=== PATIENT | female | born 1995 | race Caucasian/White ===

== ENCOUNTER 2022-10-21 22:14 | Inpatient (IN) | payer OTHER ==
[2022-10-21 22:33] VITALS: BMI 18.8
[2022-10-22] MEDS ORDERED: BISMUTH SUBSALICYLATE 524 MG/30 ML PO PRN (02:30)
[2022-10-22] MEDS ORDERED: MAGNESIUM HYDROX 2400MG/30ML ORAL SUSPENSION 30 ML CUP PO PRN (02:30)
[2022-10-22] MEDS ORDERED: guaiFENesin 600 MG TABLET.ER (FP) PO PRN (02:30)
[2022-10-22] MEDS ORDERED: POLYETHYLENE GLYCOL (HEALTHYLAX) 3350 17 GM PACKET PO PRN (02:30)
[2022-10-22] MEDS ORDERED: LOPERAMIDE HCL 2 MG CAPSULE PO PRN (02:30)
[2022-10-22] MEDS ORDERED: DICYCLOMINE HCL 10 MG CAPSULE PO PRN (02:30)
[2022-10-22] MEDS ORDERED: ACETAMINOPHEN 325 MG TABLET (FP) PO PRN (02:30)
[2022-10-22] MEDS ORDERED: BENZONATATE 200 MG CAPSULE PO PRN (02:30)
[2022-10-22] MEDS ORDERED: IBUPROFEN 600 MG TABLET (FP) PO PRN (02:30)
[2022-10-22] MEDS ORDERED: BENZOCAINE/MENTHOL (CHLORASEPTIC ) LOZENGE MM PRN (02:30)
[2022-10-22] MEDS ORDERED: MAG HYDROX/AL HYDROX/SIMETH 30 ML UNIT-DOSE CUP PO PRN (02:30)
[2022-10-22] MEDS ORDERED: IBUPROFEN 400 MG TABLET (FP) PO PRN (02:30)
[2022-10-22] MEDS ORDERED: NALOXONE HCL 0.4 MG/ML VIAL IM PRN (02:30)
[2022-10-22] MEDS ORDERED: ONDANSETRON *ODT* 4 MG TABLET SL PRN (02:30)
[2022-10-22] MEDS ORDERED: NALOXONE HCL (KLOXXADO) 8 MG SPRAY NS PRN (02:30)
[2022-10-22] MEDS ORDERED: cloNIDine HCL 0.1 MG TABLET PO PRN (09:45)
[2022-10-22] MEDS ORDERED: methaDONE HCL 10 MG TABLET (FOR DETOX USE ONLY) PO ONE (09:45)
[2022-10-22] MEDS: PRENATAL VITAMINS W/ FOLIC ACID TABLET (FP) PO SCH (10:37)
[2022-10-22] MEDS: SULFAMETHOXAZOLE/TRIMETHOPRIM 800MG/160MG D.S. TABLET PO SCH ×2 (10:37→22:21)
[2022-10-22] MEDS: METHOCARBAMOL 500 MG TABLET PO PRN (10:37)
[2022-10-22] MEDS: NICOTINE 21 MG/24 HOURS TOPICAL PATCH TD SCH (10:43)
[2022-10-22] MEDS: chlordiazePOXIDE HCL 25 MG CAPSULE PO SCH ×3 (10:45→22:21)
[2022-10-22] MEDS ORDERED: NICOTINE 10 MG CARTRIDGE (INHALER) IH PRN (12:52)
[2022-10-22] MEDS: NICOTINE POLACRILEX 2 MG GUM BUC PRN (18:45)
[2022-10-22] MEDS ORDERED: MELATONIN 5 MG TABLETS PO SCH (22:00)
[2022-10-22] MEDS: THIAMINE HCL 100 MG TABLET (FP) PO SCH (22:21)
[2022-10-23] MEDS: chlordiazePOXIDE HCL 25 MG CAPSULE PO SCH ×4 (05:45→22:25)
[2022-10-23] MEDS: PRENATAL VITAMINS W/ FOLIC ACID TABLET (FP) PO SCH (10:43)
[2022-10-23] MEDS: SULFAMETHOXAZOLE/TRIMETHOPRIM 800MG/160MG D.S. TABLET PO SCH ×2 (10:43→22:25)
[2022-10-23] MEDS: NICOTINE 21 MG/24 HOURS TOPICAL PATCH TD SCH (10:45)
[2022-10-23] MEDS: METHOCARBAMOL 500 MG TABLET PO PRN (10:47)
[2022-10-23] MEDS: ESCITALOPRAM OXALATE 20 MG TABLET PO SCH (11:47)
[2022-10-23] MEDS: OLANZapine 5 MG TABLET PO SCH (12:18)
[2022-10-23 13:03] LABS: HEMATOCRIT 29.1 % (32.4-45.2); HEMOGLOBIN 9.8 GM/dL (10.7-15.3); MCH 27.7 pg (25.7-33.7); MCHC 33.8 g/dl (32.0-36.0); MEAN PLT VOLUME 9.5 fl (7.5-11.1); PLATELET COUNT 247 10^3/uL (134-434); RBC 3.54 M/mm3 (3.60-5.2); RDW 19.7 % (11.6-15.6); WHITE BLOOD COUNT 4.5 K/mm3 (4.0-10.0)
[2022-10-23 13:06] LABS: CALCIUM 9.3 mg/dL (8.5-10.1)
[2022-10-23 13:07] LABS: ALBUMIN 2.9 g/dl (3.4-5.0); BLOOD UREA NITROGEN 6.4 mg/dL (7-18)
[2022-10-23 13:10] LABS: CREATININE 0.6 mg/dL (0.55-1.3)
[2022-10-23 13:12] LABS: BILIRUBIN,TOTAL 0.2 mg/dL (0.2-1); TOT PROT 6.4 g/dl (6.4-8.2)
[2022-10-23] MEDS: QUEtiapine FUMARATE 100 MG TABLET (FP) PO SCH (22:25)
[2022-10-23] MEDS: THIAMINE HCL 100 MG TABLET (FP) PO SCH (22:25)
[2022-10-24] MEDS: chlordiazePOXIDE HCL 25 MG CAPSULE PO SCH ×4 (05:55→23:24)
[2022-10-24] MEDS ORDERED: methaDONE HCL 10 MG TABLET (FOR DETOX USE ONLY) PO ONE (10:00)
[2022-10-24] MEDS: ESCITALOPRAM OXALATE 20 MG TABLET PO SCH (10:32)
[2022-10-24] MEDS: PRENATAL VITAMINS W/ FOLIC ACID TABLET (FP) PO SCH (10:32)
[2022-10-24] MEDS: SULFAMETHOXAZOLE/TRIMETHOPRIM 800MG/160MG D.S. TABLET PO SCH ×2 (10:32→23:24)
[2022-10-24] MEDS: OLANZapine 5 MG TABLET PO SCH (10:33)
[2022-10-24] MEDS: NICOTINE POLACRILEX 2 MG GUM BUC PRN ×2 (10:34→12:34)
[2022-10-24] MEDS: NICOTINE 21 MG/24 HOURS TOPICAL PATCH TD SCH (10:37)
[2022-10-24] MEDS: QUEtiapine FUMARATE 100 MG TABLET (FP) PO SCH (23:24)
[2022-10-24] MEDS: THIAMINE HCL 100 MG TABLET (FP) PO SCH (23:24)
[2022-10-25] MEDS: chlordiazePOXIDE HCL 10 MG CAPSULE PO SCH ×4 (05:55→22:44)
[2022-10-25] MEDS: PRENATAL VITAMINS W/ FOLIC ACID TABLET (FP) PO SCH (10:07)
[2022-10-25] MEDS: SULFAMETHOXAZOLE/TRIMETHOPRIM 800MG/160MG D.S. TABLET PO SCH ×2 (10:07→22:44)
[2022-10-25] MEDS: ESCITALOPRAM OXALATE 20 MG TABLET PO SCH (10:07)
[2022-10-25] MEDS: METHOCARBAMOL 500 MG TABLET PO PRN ×2 (10:07→17:50)
[2022-10-25] MEDS: OLANZapine 5 MG TABLET PO SCH (10:07)
[2022-10-25] MEDS: NICOTINE 21 MG/24 HOURS TOPICAL PATCH TD SCH (10:09)
[2022-10-25] MEDS: NICOTINE POLACRILEX 2 MG GUM BUC PRN ×3 (10:11→17:15)
[2022-10-25] MEDS: QUEtiapine FUMARATE 100 MG TABLET (FP) PO SCH (22:44)
[2022-10-25] MEDS: THIAMINE HCL 100 MG TABLET (FP) PO SCH (22:44)
[2022-10-26] MEDS: chlordiazePOXIDE HCL 10 MG CAPSULE PO SCH ×2 (05:13→17:09)
[2022-10-26] MEDS: SULFAMETHOXAZOLE/TRIMETHOPRIM 800MG/160MG D.S. TABLET PO SCH ×2 (09:42→23:09)
[2022-10-26] MEDS: METHOCARBAMOL 500 MG TABLET PO PRN (09:42)
[2022-10-26] MEDS: NICOTINE 21 MG/24 HOURS TOPICAL PATCH TD SCH (09:42)
[2022-10-26] MEDS: PRENATAL VITAMINS W/ FOLIC ACID TABLET (FP) PO SCH (09:42)
[2022-10-26] MEDS: ESCITALOPRAM OXALATE 20 MG TABLET PO SCH (09:42)
[2022-10-26] MEDS ORDERED: methaDONE HCL 10 MG TABLET (FOR DETOX USE ONLY) PO ONE (10:00)
[2022-10-26] MEDS: NICOTINE POLACRILEX 2 MG GUM BUC PRN ×3 (10:43→20:31)
[2022-10-26] MEDS: OLANZapine 5 MG TABLET PO SCH (11:02)
[2022-10-26] MEDS: THIAMINE HCL 100 MG TABLET (FP) PO SCH (23:08)
[2022-10-26] MEDS: QUEtiapine FUMARATE 100 MG TABLET (FP) PO SCH (23:08)
[2022-10-27] MEDS ORDERED: chlordiazePOXIDE HCL 10 MG CAPSULE PO ONE (05:00)
[2022-10-27] MEDS: NICOTINE POLACRILEX 2 MG GUM BUC PRN (08:44)
[2022-10-27 09:37] VITALS: BP 114/67; PULSE 72; RESP 18; TEMP 97.6
[2022-10-27] MEDS: NICOTINE 21 MG/24 HOURS TOPICAL PATCH TD SCH (09:45)
[2022-10-27] MEDS: ESCITALOPRAM OXALATE 20 MG TABLET PO SCH (09:45)
[2022-10-27] MEDS: SULFAMETHOXAZOLE/TRIMETHOPRIM 800MG/160MG D.S. TABLET PO SCH (09:45)
[2022-10-27] MEDS: PRENATAL VITAMINS W/ FOLIC ACID TABLET (FP) PO SCH (09:45)
[2022-10-27] MEDS: OLANZapine 5 MG TABLET PO SCH (09:45)
== END 2022-10-27 10:45 | disposition home or self-care (01) | DRG 773 ==
LOC: YASAS 22:14 → Y6N 10-22 03:02 → UNDOADMIN 10-22 03:02 → Y6N 10-22 22:03
PROVIDERS: ADMIT Allergy & Immunology; ATTEND Surgery
PROC: HZ2ZZZZ Detoxification Services for Substance Abuse Treatment (ICD-10-PCS; principal; 2022-10-22)
DX: F11.23 Opioid dependence with withdrawal (principal); F10.230 Alcohol dependence with withdrawal, uncomplicated; F14.20 Cocaine dependence, uncomplicated; F15.20 Other stimulant dependence, uncomplicated; F17.210 Nicotine dependence, cigarettes, uncomplicated; F25.1 Schizoaffective disorder, depressive type; F19.280 Other psychoactive substance dependence with psychoactive substance-induced anxiety disorder; F19.282 Other psychoactive substance dependence with psychoactive substance-induced sleep disorder; F19.24 Other psychoactive substance dependence with psychoactive substance-induced mood disorder; F32.9 Major depressive disorder, single episode, unspecified; F43.10 Post-traumatic stress disorder, unspecified
CPT/HCPCS: 36415; 80053; 85027; 86780; 93005; 93010; 99281-25; C9803-CS; U0003; U0005